=== PATIENT | male | born 1980 | race Caucasian/White ===

== ENCOUNTER → 2020-12-14 08:21 | Outpatient (CLI) | payer OTHER, SELFPAY ==
[2020-12-14 13:16] LABS: COVID19 -Nasal RAPID Negative (Negative)
== END ==
PROVIDERS: Visit Provider Physician Assistant
DX: Z20.822 Contact with and (suspected) exposure to COVID-19 (principal); Z01.812 Encounter for preprocedural laboratory examination
CPT/HCPCS: 87635

== ENCOUNTER 2020-12-15 12:21 | Day surgery (SDC) | payer OTHER, SELFPAY ==
--- NOTE | 2020-12-15 | PATH_ITS ---
[facility] Accession Number: [id number] . 01 Material submitted: . PART A: cecum - CECUM POLYP PART B: colon - TRANSVERSE COLON POLYP X2 . 02 Diagnosis: A. Cecum Polyp: Tubular adenoma. . B. Transverse Colon Polyp x2: Portions of tubular adenoma x2. . V 12/18/2020 1106 Local . 02 Electronically signed: . Natalia Moran MD, Pathologist NPI- [id number] . 01 Gross description: . Part A: CECUM POLYP: Received in formalin is 1 fragment(s) of mcdaniels, soft tissue measuring 0.2 x 0.1 x 0.1 cm submitted entirely in 1 cassette(s) Part B: TRANSVERSE COLON POLYP X2: Received in formalin are 2 fragment(s) of mcdaniels, soft tissue measuring 0.4 x 0.4 x 0.2 cm to 0.3 x 0.2 x 0.2 cm submitted entirely in 1 cassette(s) /[facility] 12/16/2020 1434 Local . 02 Pathologist provided ICD-10: K63.5, Z87.19, Z80.0, R10.32 . 02 CPT . 351951, [id number] Performed at: 01 [facility] Located within [facility] [address], [place], [place] [id number] MD Deonte Gross MD Phone: [phone] Performed at: 02 [facility] [place] [address] [place], [place] [id number] MD Chiquis Parr MD Phone: [phone]
[2020-12-15] MEDS: SODIUM CHLORIDE 0.9% 1,000 ML 84 ML IV (12:30)
[2020-12-15 12:40] VITALS: BP 148/88; PULSE 60; RESP 18; TEMP 36.8; O2SAT 98; BMI 29.2
--- NOTE | 2020-12-15 12:59 | PM.HP.1 ---
History of Present Illness History of Present Illness Date Patient Seen: 12/15/20 Time Patient Seen: 12:59 Chief complaint: DX COLONOSCOPY Narrative: I reviewed Dr. Anthony's note. No further pain in the left lower quadrant. There is a family history of colon polyps and colon cancer. Patient History Family & Social History Social History: household members spouse Tobacco & Substance use: Smoking Status Never smoker alcohol intake never Substance Use Type does not use Meds Home Medications and Allergies Home Medications Medication Instructions Recorded Confirmed Type No Known Home Medications 12/15/20 12/15/20 History Allergies Allergy/AdvReac Type Severity Reaction Status Date / Time No Known Drug Allergies Allergy Verified 12/15/20 12:16 Review of Systems Review of Systems ROS: Yes All systems reviewed with the patient and are negative except as otherwise documented Exam Vital Signs (past 8 hours): - 12/15/20 12:40 Temperature 98.2 F Pulse Rate 60 Respiratory Rate 18 Blood Pressure 148/88 H Pulse Oximetry 98 Oxygen Delivery Method Room Air Const General: cooperative and comfortable Orientation: alert HENMT Head: normocephalic Ears: external ears normal Nose: external nose normal Face and sinus: normal facial exam Eyes General: appearance normal, both eyes and all related structures Neck Neck: normal visual inspection Chest Chest: normal inspection of the chest Resp Effort & Inspection: normal respiratory effort Cardio Rate: regular rate GI Inspection: normal to inspection Skin General: no rashes or lesions noted and No jaundice Neuro General: patient alert and moves all extremities Cognition: normal cognition Speech: speech normal Extrem General: no pedal edema Psych Appearance: grossly normal Assessment & Plan Assessment & Plan narrative: Family history of colon polyps in his mom and four second-degree relatives with colon cancer diagnosed prior to age 60. Colonoscopy is planned for today. Time Spent With Patient Critical Care time: I spent a total of [] minutes of critical care time on this patient's care today; this time is exclusive of procedural time.
--- NOTE | 2020-12-15 13:01 | PM.PREOP ---
Pre-operative Note COVID-19 COVID-19 status: Negative Result date/Date tested (Pos, Neg/Pending): 12/14/20 Interval Note History & Physical reviewed/Exam performed by Physician: Yes Changes to H&P: Yes ASA Class (for procedural sedation): I
--- NOTE | 2020-12-15 13:30 | PM.OP.COLON ---
Operative Date/Time/Diagnoses Date of procedure: 12/15/20 Time of procedure: 13:30 Pre-op diagnosis: Family history of colon cancer Post-op diagnosis: same Procedure & Clinicians Study performed: Colonoscopy with cold forceps polypectomy and cold snare polypectomy Same procedure as scheduled: Yes Indications: Family history of colon cancer Surgeon: Osvaldo Teran Procedure Notes SCOAP/Timeout: Done Procedure in detail: After the risks and benefits were explained, written and verbal informed consent was obtained. The patient was brought into the procedure room and placed into the left lateral decubitus position. Please see nurse escort vehicle driver note for sedation details. Digital rectal examination was accomplished. The scope was introduced into the patient and advanced under direct visualization to the cecum as identified by the appendiceal orifice and ileocecal valve. The scope was slowly withdrawn to carefully examine the mucosa for any defects or lesions. Comprehensive imaging was accomplished throughout the rectum including the dentate line. The colon was decompressed, the scope was then removed from the patient who tolerated the procedure well. Bowel prep adequate Adult colonoscope Scope withdrawal time: 11 minutes Sedation minutes: 20 Complications: none Impression: The patient had a very tortuous sigmoid colon. Navigation was a little challenging. In the cecum there was a diminutive polyp removed with cold forceps. In the transverse colon there was a 2nd diminutive polyp removed with cold forceps and then a slightly larger 5 mm polyp removed with cold snare. No additional pathology was appreciated throughout Endoscopic diagnosis Colon polyps Post-procedure Plan for aftercare: 1. Await histopathology 2. Repeat colonoscopy will likely be suggested for 5 years time as I suspect 1 or 2 of these polyps may be returned hyperplastic. If all of the polyps are returned adenomatous, repeat colonoscopy will be suggested for 3 years. Disposition: PACU
[2020-12-15 13:33] VITALS: BP 107/80; PULSE 65; RESP 14; TEMP 36.1; O2SAT 98
[2020-12-15 13:39] VITALS: BP 115/69; PULSE 75; RESP 14; O2SAT 98
[2020-12-15 13:44] VITALS: BP 135/89; PULSE 64; RESP 14; O2SAT 98
[2020-12-15 13:47] VITALS: BP 131/93; PULSE 57; RESP 14; TEMP 36.1
[2020-12-15 14:03] VITALS: BP 135/64; PULSE 64; RESP 14; TEMP 36.1; O2SAT 100
== END 2020-12-15 14:03 | disposition home or self-care (01) ==
PROVIDERS: PCP Family Medicine; Referring Provider Internal Medicine Gastroenterology; Visit Provider Internal Medicine Gastroenterology
PROC: 0DJD8ZZ Inspection of Lower Intestinal Tract, Via Natural or Artificial Opening Endoscopic (ICD-10-PCS; CPT 45378; principal; 2020-12-15 13:30)
DX: Z12.11 Encounter for screening for malignant neoplasm of colon (principal); Z83.71 Family history of colonic polyps; D12.0 Benign neoplasm of cecum; D12.3 Benign neoplasm of transverse colon
CPT/HCPCS: 45385; 45380; J2704

== ENCOUNTER → 2021-03-16 13:14 | Outpatient (CLI) | payer OTHER, SELFPAY ==
[2021-03-20 12:28] LABS: Ca oxalate dihydrate 60 % (.); Ca oxalate monohydr 35 % (.); Hydroxyapatite 5 % (.); Size 10x5 mm (.)
== END ==
PROVIDERS: PCP Family Medicine; Visit Provider Urology
DX: N20.0 Calculus of kidney (principal)
CPT/HCPCS: 82365

== ENCOUNTER → 2021-03-16 13:46 | Outpatient (CLI) | payer OTHER, SELFPAY ==
--- NOTE | 2021-03-16 13:49 | DI.RAD.S_ITS ---
PROCEDURE: XR KUB INDICATIONS: Renal calculi TECHNIQUE: One view of the abdomen acquired. COMPARISON: None. FINDINGS: Surgical changes and devices: None. Bowel: Bowel gas pattern is normal. Soft tissues: Tiny 2-3 mm calcification noted projecting over the lower pole left kidney. Right renal shadows largely obscured by overlying bowel gas.. Visualized solid organ contours appear normal in size. Bones: No suspicious bony lesions. IMPRESSION: Possible 2-3 mm left renal calculus. Nonobstructive bowel gas pattern. Approved by: Govind Lane M.D. on 03/16/2021 at 17:25
== END ==
PROVIDERS: PCP Family Medicine; Referring Provider Urology; Visit Provider Urology
DX: N20.0 Calculus of kidney (principal); Z87.898 Personal history of other specified conditions
CPT/HCPCS: 74018; 81002; 82365; 99214

== ENCOUNTER → 2021-03-19 08:23 | Outpatient (CLI) | payer OTHER, SELFPAY ==
--- NOTE | 2021-03-19 08:25 | DI.CT.S_ITS ---
PROCEDURE: CT ABDOMEN PELVIS WO CON INDICATIONS: Kidney stone. Flank pain. TECHNIQUE: Helical axial CT of the abdomen and pelvis was obtained without contrast and reformatted in multiple planes. Automated exposure control and/or adjustment of the dose parameters according to patient's size was utilized for radiation dose reduction. COMPARISON: [facility], , CT ABDOMEN/PELVIS WITH CONTRAST, 06/25/2020, 19:21. FINDINGS: Lower thorax: The lung bases are clear. Heart size normal. No hiatal hernia. Liver: The liver is diffusely decreased in attenuation without focal mass lesion. Biliary system: No calcified cholelithiasis or pericholecystic inflammation. No intra or extrahepatic bile duct dilatation. Pancreas: Unremarkable without mass or inflammation evident. Spleen: Normal in size and density. Adrenals: Normal morphology and density. Reproductive system: Unremarkable as visualized. Urinary system: 5 mm calculus present in the proximal right ureter with mild right hydronephrosis. Additional 5 mm left renal nonobstructing calculus noted. No hydronephrosis or hydroureter bilaterally. Urinary bladder unremarkable Gastrointestinal system: The bowel is unremarkable without evidence of bowel obstruction or inflammation. The stomach appears unremarkable. Appendix: Normal appendix identified. No evidence of appendicitis. Peritoneal spaces: No mesenteric or retroperitoneal adenopathy. No free air. No free fluid. Vasculature: The IVC, aorta and iliac vasculature are unremarkable. Abdominal wall: Small bilateral inguinal hernias contain fat without bowel involvement. Musculoskeletal: Normal bone mineralization. No acute fractures. IMPRESSION: 1. Right-sided 5 mm calculus in the proximal right ureter results in mild right hydronephrosis. 2. Nonobstructive 5 mm left renal calculus. No hydronephrosis. 3. Hepatic fatty infiltration and small bilateral or inguinal hernias containing fat without Approved by: Govind Lane M.D. on 03/19/2021 at 15:14
== END ==
PROVIDERS: PCP Family Medicine; Referring Provider Urology; Visit Provider Urology
DX: N13.2 Hydronephrosis with renal and ureteral calculous obstruction (principal); K76.0 Fatty (change of) liver, not elsewhere classified; K40.20 Bilateral inguinal hernia, without obstruction or gangrene, not specified as recurrent
CPT/HCPCS: 74176

== ENCOUNTER → 2021-04-19 16:33 | Outpatient (CLI) | payer OTHER, SELFPAY ==
--- NOTE | 2021-04-19 16:35 | DI.RAD.S_ITS ---
PROCEDURE: XR KUB INDICATIONS: Renal calculi TECHNIQUE: One view of the abdomen acquired. COMPARISON: [facility], CR, XR KUB, 03/16/2021, 13:40. [facility], CT, CT ABDOMEN PELVIS WO CON, 03/19/2021, 7:16. FINDINGS: Surgical changes and devices: None. Bowel: Bowel gas pattern is normal. Soft tissues: Small calcification in the right paraspinal region could represent the previously seen right proximal ureteral calculus versus overlapping soft tissue structures in stool. Additional bilateral renal calculi are not definitely seen radiographically. Visualized solid organ contours appear normal in size. Bones: No suspicious bony lesions. IMPRESSION: Possible small calcification in the right paraspinal region may represent the previously seen right ureteral calculus versus superimposed soft tissue structures and stool. Additional previously seen small bilateral renal calculi are not seen radiographically. If indicated, CT could be obtained for further evaluation. Dictated by: Cecil Diallo M.D. on 04/19/2021 at 16:56 Approved by: Cecil Diallo M.D. on 04/19/2021 at 16:59
== END ==
PROVIDERS: PCP Family Medicine; Referring Provider Urology; Visit Provider Urology
DX: N20.1 Calculus of ureter (principal)
CPT/HCPCS: 74018

== ENCOUNTER → 2021-05-11 15:33 | Outpatient (CLI) | payer OTHER, SELFPAY ==
--- NOTE | 2021-05-11 15:34 | DI.RAD.S_ITS ---
PROCEDURE: XR KUB INDICATIONS: Right ureteral calculus TECHNIQUE: One view of the abdomen acquired. COMPARISON: [facility], CT, CT ABDOMEN PELVIS WO CON, 03/19/2021, 7:16. [facility], CR, XR KUB, 04/19/2021, 16:29. FINDINGS: Surgical changes and devices: None. Bowel: Bowel gas pattern is normal. A large amount of stool in colon. Soft tissues: Possible mid right ureteral stone. Suspect a couple of left renal calculi. Visualized solid organ contours appear normal in size. Bones: No suspicious bony lesions. IMPRESSION: Possible right mid ureteral calculus and possible 2 left renal calculi. Dictated by: Grant Bowling M.D. on 05/11/2021 at 17:33 Approved by: Grant Bowling M.D. on 05/11/2021 at 17:37
== END ==
PROVIDERS: PCP Family Medicine; Referring Provider Urology; Visit Provider Urology
DX: N20.1 Calculus of ureter (principal)
CPT/HCPCS: 74018

== ENCOUNTER → 2021-06-07 15:47 | Outpatient (CLI) | payer OTHER, SELFPAY ==
--- NOTE | 2021-06-07 15:48 | DI.RAD.S_ITS ---
PROCEDURE: XR KUB INDICATIONS: Right ureteral calculus TECHNIQUE: One view of the abdomen acquired. COMPARISON: [facility], , XR KUB, 05/11/2021, 15:41. FINDINGS: Surgical changes and devices: None. Bowel: Bowel gas pattern is normal. Soft tissues: Previously described bilateral renal calcifications are not definitely seen on the current study. Previously noted possible right ureteral calcification is not definitely seen.. Visualized solid organ contours appear normal in size. Bones: No suspicious bony lesions. IMPRESSION: No obvious renal calcification or ureteral calcification is seen on the current study. Dictated by: Amish Quinones M.D. on 06/07/2021 at 16:32 Approved by: Amish Quinones M.D. on 06/07/2021 at 16:33
== END ==
PROVIDERS: PCP Family Medicine; Referring Provider Urology; Visit Provider Urology
DX: N20.1 Calculus of ureter (principal)
CPT/HCPCS: 74018

== ENCOUNTER → 2021-06-08 16:27 | Outpatient (CLI) | payer OTHER, SELFPAY ==
[2021-06-08 17:05] LABS: Calcium 8.3 mg/dL (8.4-10.2); Uric Acid 6.4 mg/dL (3.5-8.5)
[2021-06-10 05:33] LABS: Calcium 8.9 mg/dL (8.7-10.2); Parathyroid Hormone, Intact 63 pg/mL (15-65)
== END ==
PROVIDERS: PCP Family Medicine; Referring Provider Urology; Visit Provider Urology
DX: N20.2 Calculus of kidney with calculus of ureter (principal)
CPT/HCPCS: 36415; 81002; 82310; 83970; 84550; 99213

== ENCOUNTER → 2021-07-01 15:21 | Outpatient (CLI) | payer OTHER, SELFPAY ==
[2021-07-07 13:25] LABS: Ca oxalate dihydrate 40 % (.); Ca oxalate monohydr 50 % (.); Hydroxyapatite 10 % (.); Size 5x4 mm (.)
== END ==
PROVIDERS: PCP Family Medicine; Visit Provider Urology
DX: N20.0 Calculus of kidney (principal)
CPT/HCPCS: 82365

== ENCOUNTER → 2021-07-01 15:24 | Outpatient (CLI) | payer OTHER, SELFPAY ==
[2021-07-03 04:16] LABS: HSV 2 IGG AB < 0.91 index (0.00-0.90); HSV1IGG < 0.91 index (0.00-0.90)
== END ==
PROVIDERS: PCP Family Medicine; Referring Provider Obstetrics & Gynecology; Visit Provider Obstetrics & Gynecology
DX: N20.0 Calculus of kidney (principal); B00.9 Herpesviral infection, unspecified
CPT/HCPCS: 36415; 82365; 86694; 86695; 86696

== ENCOUNTER → 2021-08-30 16:16 | Outpatient (CLI) | payer OTHER, SELFPAY ==
--- NOTE | 2021-08-30 16:17 | DI.RAD.S_ITS ---
PROCEDURE: XR SHOULDER LT MIN 2V INDICATIONS: trauma, tenderness at AC, TECHNIQUE: Three views of the shoulder were acquired. COMPARISON: None. FINDINGS: Bones: No acute fractures or dislocations. No suspicious bony lesions. Visualized ribs appear intact. Acromioclavicular joint is normally aligned. Soft tissues: No suspicious soft tissue calcifications. IMPRESSION: No acute osseous abnormality. If clinical suspicion and/or symptoms persist, additional imaging with repeat plain films, or advanced imaging (e.g. CT, MRI) may be helpful for further assessment. Dictated by: Cecil Diallo M.D. on 08/30/2021 at 16:58 Approved by: Cecil Diallo M.D. on 08/30/2021 at 17:03
== END ==
PROVIDERS: PCP Family Medicine; Referring Provider Nurse Practitioner Critical Care Medicine; Visit Provider Nurse Practitioner Critical Care Medicine
DX: S49.92XA Unspecified injury of left shoulder and upper arm, initial encounter (principal); N20.0 Calculus of kidney; R82.994 Hypercalciuria; R82.998 Other abnormal findings in urine; X58.XXXA Exposure to other specified factors, initial encounter
CPT/HCPCS: 73030; 99214

== ENCOUNTER → 2022-06-29 12:23 | Outpatient (CLI) | payer OTHER, SELFPAY ==
--- NOTE | 2022-06-29 12:23 | DI.RAD.S_ITS ---
PROCEDURE: XR CHEST 2V INDICATIONS: Cough TECHNIQUE: 2 views of the chest were acquired. COMPARISON: [facility], CR, XR KUB, 06/07/2021, 15:53. FINDINGS: Surgical changes and devices: None. Lungs and pleura: Lungs are clear. No pleural effusions or pneumothorax. Mediastinum: Cardiac silhouette is at the upper limit of normal in size. Bones and chest wall: No suspicious bony abnormalities. Soft tissues appear unremarkable. IMPRESSION: No acute cardiopulmonary abnormality. Dictated by: Cecil Blanchard M.D. on 06/29/2022 at 17:34 Approved by: Cecil Blanchard M.D. on 06/29/2022 at 17:36
== END ==
PROVIDERS: PCP Family Medicine; Referring Provider Nurse Practitioner Family; Visit Provider Nurse Practitioner Family
DX: R05.9 Cough, unspecified (principal)
CPT/HCPCS: 71046

== ENCOUNTER → 2022-11-17 11:19 | Outpatient (CLI) | payer OTHER, SELFPAY ==
--- NOTE | 2022-11-17 11:29 | DI.RAD.S_ITS ---
PROCEDURE: XR HIP W PEL IF DONE RT 2V INDICATIONS: Right hip pain TECHNIQUE: AP pelvis with lateral view(s) of the right hip(s). COMPARISON: None. FINDINGS: Bones: No fractures or dislocations. Pelvic ring appears intact. No suspicious bony lesions. Joint spaces are preserved. Soft tissues: The visualized bowel gas pattern is normal. No suspicious soft tissue calcifications. IMPRESSION: No acute radiographic findings. Dictated by: Nitza Damian M.D. on 11/17/2022 at 13:33 Approved by: Nitza Damian M.D. on 11/17/2022 at 13:34
== END ==
PROVIDERS: PCP Family Medicine; Referring Provider Family Medicine; Visit Provider Family Medicine
DX: M70.61 Trochanteric bursitis, right hip (principal); G89.29 Other chronic pain; M25.551 Pain in right hip
CPT/HCPCS: 73502

== ENCOUNTER → 2023-01-27 10:45 | Outpatient (CLI) | payer OTHER, SELFPAY ==
[2023-01-27 11:45] LABS: Add Manual Diff / Slide Review NO; Basophils Absolute Auto 0 /uL (0-100); Basophils Percent Auto 0.4 % (0-2); Eosinophils Absolute Auto 100 /uL (0-450); Hematocrit 44.8 % (41-53); Hemoglobin 15.4 g/dL (13.5-17.5); Lymphocytes Absolute Auto 2300 /uL (1100-4500); Mean Corpuscular HGB Conc 34.5 % (30-36); Mean Corpuscular Hemoglobin 31.2 PG (26-34); Mean Corpuscular Volume 90.3 fL (80-100); Monocytes Absolute Auto 500 /uL (0-900); Neutrophils Absolute Auto 4100 /uL (1500-7000); Neutrophils Percent Auto 58.6 % (50-75); Platelet Count 181 X10^3/uL (150-400); Red Blood Cell Count 4.96 X10^6/uL (4.5-5.9); Red Cell Distribution Width 13.1 % (11.6-14.8)
[2023-01-27 11:50] LABS: Hemoglobin A1C% w Est Avg Glu 5.7 % (4.0-6.0)
[2023-01-27 12:10] LABS: Alanine Aminotransferase 40 IU/L (<50); Albumin 4.3 g/dL (3.5-5.0); Albumin Globulin Ratio 1.2 (1.0-2.8); Alkaline Phosphatase 92 U/L (38-126); Aspartate Aminotransferase 28 IU/L (17-59); BUN Creatinine Ratio 14.8 (6-22); Bilirubin Total 1.1 mg/dL (0.2-1.3); Blood Urea Nitrogen 12 mg/dL (9-20); Calcium 9.1 mg/dL (8.4-10.2); Carbon Dioxide 30 mmol/L (22-32); Chloride 102 mmol/L (98-107); Cholesterol 191 mg/dL (140-199); Estimated Glomerular Filt Rate > 60 mL/min (>60); Globulin 3.6 g/dL (1.7-4.1); Glucose 104 mg/dL (70-100); HDL Cholesterol 34 mg/dL (40-60); HEMOLYSIS < 15 (0-50); LDL Cholesterol Calculated 125 mg/dL (<100); Potassium 4.1 mmol/L (3.4-5.1); Sodium 139 mmol/L (137-145); Total Protein 7.9 g/dL (6.3-8.2); Triglycerides 159 mg/dL (35-150)
== END ==
PROVIDERS: PCP Family Medicine; Referring Provider Family Medicine; Visit Provider Family Medicine
DX: Z00.00 Encounter for general adult medical examination without abnormal findings (principal); Z83.3 Family history of diabetes mellitus
CPT/HCPCS: 36415; 80053; 80061; 83036; 85025

== ENCOUNTER → 2024-01-22 06:50 | Outpatient (CLI) | payer OTHER, SELFPAY ==
[2024-01-22 08:11] LABS: Hemoglobin A1C% w Est Avg Glu 5.6 % (4.0-6.0)
[2024-01-22 08:22] LABS: Alanine Aminotransferase 37 IU/L (<50); Albumin 4.3 g/dL (3.5-5.0); Albumin Globulin Ratio 1.5 (1.0-2.8); Alkaline Phosphatase 100 U/L (38-126); Aspartate Aminotransferase 34 IU/L (17-59); BUN Creatinine Ratio 17.3 (6-22); Bilirubin Total 0.8 mg/dL (0.2-1.3); Blood Urea Nitrogen 13 mg/dL (9-20); Calcium 8.7 mg/dL (8.4-10.2); Carbon Dioxide 25 mmol/L (22-32); Chloride 106 mmol/L (98-107); Cholesterol 197 mg/dL (140-199); Estimated Glomerular Filt Rate > 60 mL/min (>60); Globulin 2.9 g/dL (1.7-4.1); Glucose 118 mg/dL (70-100); HDL Cholesterol 36 mg/dL (40-60); HEMOLYSIS 49 (0-50); LDL Cholesterol Calculated 133 mg/dL (<100); Potassium 4.3 mmol/L (3.4-5.1); Sodium 138 mmol/L (137-145); Total Protein 7.2 g/dL (6.3-8.2); Triglycerides 142 mg/dL (35-150)
== END ==
PROVIDERS: PCP Family Medicine; Referring Provider Family Medicine; Visit Provider Family Medicine
DX: Z00.00 Encounter for general adult medical examination without abnormal findings (principal); Z83.3 Family history of diabetes mellitus
CPT/HCPCS: 36415; 80053; 80061; 83036